=== PATIENT | female | born 1980 | race Two or more races ===

== ENCOUNTER 2018-05-31 13:48 | Emergency (ER) | payer MEDICAID ==
[~2018-05-31] VITALS: Ht 157.5 cm; Wt 88.5 kg
--- NOTE | 2018-05-31 13:52 | NUR ---
PT AMBULATORY TO ER BED 12 C/O 3 WEEKS OF COUGH AND CONGESTION. SORE THROAT AND HEADACHE WORST SINCE LAST NIGHT. PT IS [employer]. AWAITING MD QUIROGA.
--- NOTE | 2018-05-31 14:24 | NUR ---
DR RED AT BEDSIDE FOR EVAL
[2018-05-31] MEDS ORDERED: prednisoLONE 15 MG/5 ML UDC PO ONE (14:30)
[2018-05-31] MEDS ORDERED: prednisoLONE SOLUTION 15 MG/5 ML UDC ONE (14:40)
[2018-05-31] MEDS ORDERED: ONDANSETRON 4 MG TAB.RAPDIS SL ONE (15:30)
[2018-05-31] MEDS ORDERED: ONDANSETRON 4 MG TAB.RAPDIS ONE (15:37)
[2018-05-31] MEDS ORDERED: ACETAMINOPHEN ES 500 MG TABLET ONE (17:26)
[2018-05-31] MEDS ORDERED: ACETAMINOPHEN 325 MG TABLET PO ONE (17:30)
--- NOTE | 2018-05-31 17:39 | NUR ---
Patient discharged to home in stable condition. Written and verbal after care instructions given. Patient verbalizes understanding of instruction.
[2018-05-31 17:40] VITALS: BP 138/87
== END 2018-05-31 17:41 | disposition home or self-care (01) ==
LOC: ER 13:53
DX: J02.8 Acute pharyngitis due to other specified organisms (principal); J06.9 Acute upper respiratory infection, unspecified
CPT/HCPCS: 71045; 87070; 87880; 99284; A4606; J7510 ×2; Q0162; 86403-TC